=== PATIENT | male | born 1995 | race Caucasian/White ===

== ENCOUNTER 2025-08-18 20:09 | Emergency (ER) | payer MEDICARE, MEDICAID ==
[2025-08-18] MEDS: Dexamethasone 4 MG/ML SDV PO ONE (21:32)
[2025-08-18 23:47] LABS: PLATELET COUNT,PLT 260 10^3/uL (150-450); RED BLOOD CELL COUNT 4.34 10^6/uL (4.6-6.2); WHITE BLOOD CELL COUNT,WBC 12.4 10^3/uL (5.0-10.0)
[2025-08-18 23:48] LABS: BASOPHILS PERCENT AUTO 0.1 % (0.0-1.0); EOSINOPHILS PERCENT AUTO 0.9 % (1.0-3.0); LYMPHOCYTES PERCENT AUTO 9.7 % (20.5-50.1); MONOCYTES PERCENT AUTO 4.1 % (2-8); NEUTROPHILS PERCENT AUTO 85.2 % (42.2-75.2)
[2025-08-19 00:08] LABS: B-TYPE NATRIURETIC PEPTIDE,BNP 9.0 pg/ml (0-100)
[2025-08-19 00:14] LABS: A/G RATIO 0.62; ALANINE AMINOTRANSFERASE,ALT 38.0 U/L (16-63); ASPARTATE AMNIOTRANSFERASE,AST 25.0 U/L (15-37); BILIRUBIN TOTAL 0.4 mg/dL (0.2-1.0); BLOOD UREA NITROGEN,BUN 13.0 mg/dL (7-18); CARBON DIOXIDE,CO2 31.0 mmol/L (21-32); CHLORIDE,CL 102.0 mmol/L (98-107); CREATININE 1.06 mg/dL (0.70-1.30); EST CRCL DRUG DOSING (CG) 72.72 mL/min; ESTIMATED GFR 97.0 mL/min (>=60); GLUCOSE RANDOM 141.0 mg/dL (70-99); POTASSIUM,K 4.3 mmol/L (3.5-5.1); PROTEIN TOTAL,TP 8.1 g/dL (6.4-8.2); SODIUM,NA 138.0 mmol/L (136-145)
[2025-08-19] MEDS: Azithromycin 200 MG/5 ML Susp 30 ML Bottle PO ONE (01:07)
== END 2025-08-19 01:10 | disposition home or self-care (01) ==
LOC: DL.ED 20:09
DX: J18.9 Pneumonia, unspecified organism (principal)
CPT/HCPCS: 36415; 71045; 80053; 83880; 84145; 84484; 85025; 99284; 99285; A9270; J1100